=== PATIENT | male | born 1970 | race Caucasian/White ===

== ENCOUNTER 2021-01-09 18:42 | Emergency (ER) | payer OTHER ==
[~2021-01-09] VITALS: Ht 170.2 cm; Wt 90.4 kg
[2021-01-09 19:21] VITALS: Ht 170.2 cm; Wt 90.4 kg
[2021-01-09 20:41] VITALS: BP 163/95
[2021-01-09] MEDS ORDERED: COLACE100 MG PO (20:47)
[2021-01-09] MEDS ORDERED: MIRALAX17 GM PO (20:47)
== END 2021-01-09 21:06 | disposition home or self-care (01) ==
LOC: ED 18:42
DX: K59.00 Constipation, unspecified (principal); R14.0 Abdominal distension (gaseous)

== ENCOUNTER 2021-01-10 01:40 | Inpatient (IN) | payer OTHER ==
[~2021-01-10] VITALS: Ht 170.2 cm; Wt 91.3 kg
[~2021-01-10 01:40] MED LIST: COLACE100 MG PO; MIRALAX17 GM PO
[2021-01-10 01:52] VITALS: Ht 170.2 cm; Wt 91.3 kg
[2021-01-10 02:58] LABS: BASOPHIL % 0.9 % (0.2-1.5); PLATELET COUNT 382 x10^3mcL (152-348); RED CELL DISTRIBUTION WIDTH 16.5 % (12.1-16.2)
[2021-01-10 03:07] LABS: UA SPECIFIC GRAVITY 1.025 (1.005-1.035); microscopic required? YES; urine erythrocyte TRACE (NEGATIVE)
[2021-01-10 03:10] LABS: CALCIUM 8.8 mg/dL (8.5-10.1); CARBON DIOXIDE 29.6 mmol/L (21-32); CHLORIDE SERUM 104 mmol/L (98-107); CREATININE SERUM 0.8 mg/dL (0.7-1.3); GFR1 > 60 mL/min; GLUCOSE SERUM 131 mg/dL (74-106); POTASSIUM SERUM 3.6 mmol/L (3.5-5.1); SODIUM SERUM 140 mmol/L (136-145)
[2021-01-10 03:12] LABS: ALBUMIN 3.6 g/dL (3.4-5.0); ALKALINE PHOSPHATASE 110 U/L (46-116); ALT/SGPT 41 U/L (16-63); AST/SGOT 20 U/L (15-37); BILIRUBIN TOTAL 0.1 mg/dL (0.20-1.00); LIPASE 122 IU/L (73-393); TOTAL PROTEIN, SERUM 7.3 g/dL (6.4-8.2)
[2021-01-10 04:15] LABS: MAGNESIUM 2.6 mg/dL (1.8-2.4)
[2021-01-10 04:16] LABS: CHOLESTEROL/HDL RATIO 5.9
[2021-01-10 05:26] VITALS: BP 189/108
[2021-01-10 08:27] VITALS: BP 155/102
[2021-01-10 12:14] VITALS: BP 184/103
[2021-01-10 17:30] VITALS: BP 173/110
[2021-01-10 19:48] VITALS: BP 205/118
[2021-01-10 22:42] VITALS: BP 187/114
[2021-01-11] VITALS (7 sets, daily range): BP systolic 143–181; BP diastolic 90–111
[2021-01-11 07:01] LABS: BASOPHIL % 0.2 % (0.2-1.5)
[2021-01-11 07:31] LABS: CARBON DIOXIDE 30.2 mmol/L (21-32); CHLORIDE SERUM 97 mmol/L (98-107); GFR1 > 60 mL/min; GLUCOSE SERUM 118 mg/dL (74-106); MAGNESIUM 2.4 mg/dL (1.8-2.4); PHOSPHOROUS 5.8 mg/dL (2.5-4.9); POTASSIUM SERUM 4.1 mmol/L (3.5-5.1); SODIUM SERUM 138 mmol/L (136-145)
[2021-01-11 07:55] LABS: PLATELET COUNT 451 x10^3mcL (152-348); RED CELL DISTRIBUTION WIDTH 16.3 % (12.1-16.2)
[2021-01-12 05:20] VITALS: BP 122/74
[2021-01-12 08:46] VITALS: BP 131/89
[2021-01-12] MEDS ORDERED: HYD25 PO (12:31)
[2021-01-12] MEDS ORDERED: PHOS PO (12:32)
[2021-01-12] MEDS ORDERED: LAC30L PO (12:32)
[2021-01-12] MEDS ORDERED: COL100 PO (12:32)
[2021-01-12] MEDS ORDERED: CIPRO500 MG PO (12:33)
[2021-01-12] MEDS ORDERED: FLA500 PO (12:33)
[2021-01-12 12:59] VITALS: BP 138/85
[2021-01-12 13:36] VITALS: BP 138/85
== END 2021-01-12 14:54 | disposition home or self-care (01) | DRG 244 ==
LOC: ED 01:40 → DU 03:30 → MU 03:30 → DU 06:24 → MU 16:51 → DU 20:42
PROVIDERS: Emergency Medicine; Internal Medicine; ADMIT Internal Medicine; ATTEND Internal Medicine
PROC: 0DJD8ZZ Inspection of Lower Intestinal Tract, Via Natural or Artificial Opening Endoscopic (ICD-10-PCS; principal; 2021-01-11 09:00)
DX: K57.32 Diverticulitis of large intestine without perforation or abscess without bleeding (principal); E83.39 Other disorders of phosphorus metabolism; E66.9 Obesity, unspecified; F10.99 Alcohol use, unspecified with unspecified alcohol-induced disorder; F17.210 Nicotine dependence, cigarettes, uncomplicated; Z20.822 Contact with and (suspected) exposure to COVID-19; K59.00 Constipation, unspecified; N39.0 Urinary tract infection, site not specified; K52.9 Noninfective gastroenteritis and colitis, unspecified; Z68.31 Body mass index [BMI] 31.0-31.9, adult; I16.1 Hypertensive emergency; E83.41 Hypermagnesemia; F15.90 Other stimulant use, unspecified, uncomplicated; K64.4 Residual hemorrhoidal skin tags
CPT/HCPCS: 45378; 83880; G0378; J0360; J0744; J1200; J1610; J2250; J2310; J2405; J2543; J3010; J3490; J7030; U0003